=== PATIENT | female | born 1995 | race Two or more races ===

== ENCOUNTER 2018-05-10 17:53 | Emergency (ER) | payer OTHER ==
[2015-03-13 11:14] VITALS: Wt 49.9 kg
[~2018-05-10 17:53] MED LIST: FLUO-201 PO
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
[2018-05-10] MEDS ORDERED: NS(*) 0.9% 1000 ML BAG 1,000 ML IV ONE (18:13)
[2018-05-10] MEDS ORDERED: ONDANSETRON 4 MG/2 ML VIAL IVP ONE ×2 (18:15→19:40)
[2018-05-10] MEDS ORDERED: fentaNYL CITR 100 MCG/2 ML AMP IVP ONE (18:15)
[2018-05-10 18:39] LABS: PLATELET COUNT, AUTOMATED 357 K/uL (150-450)
[2018-05-10 18:48] LABS: INR 1.02
[2018-05-10] MEDS ORDERED: IOPAMIDOL 76% 100 ML INFUS BTL 100 ML ONE (19:09)
[2018-05-10] MEDS ORDERED: NS(*) 0.9% 50 ML BAG 50 ML ONE (19:10)
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
[2018-05-10] MEDS ORDERED: ACET/HYDROC 5/325MG TH ER ONLY 2 TAB/BOTTLE PO ONE (20:25)
[2018-05-10] MEDS ORDERED: ONDANSETRON 4 MG ODT TABDP SL ONE (20:25)
[2018-05-10] MEDS ORDERED: LOR5/325 PO (20:28)
[2018-05-10] MEDS ORDERED: ONDA4TAB97 PO (20:28)
[2018-05-10 20:30] VITALS: BP 91/75
== END 2018-05-10 20:56 | disposition home or self-care (01) ==
LOC: ER 18:36
DX: S16.1XXA Strain of muscle, fascia and tendon at neck level, initial encounter (principal); S43.101A Unspecified dislocation of right acromioclavicular joint, initial encounter; V47.9XXA Unspecified car occupant injured in collision with fixed or stationary object in traffic accident, initial encounter
CPT/HCPCS: 70450; 71260; 72125; 73030; 74177; 80320; 81001; 83605; 84703; 85025; 85610; 85730; 96361; 96374; 96375; 99284; A4565; J2405; J3010; J7030; J7050; L0172; Q9967; S0119; 82040; 82247; 82310; 82374; 82435; 82565; 82947; 84075; 84132; 84155; 84295; 84450; 84460; 84520